=== PATIENT | female | born 1970 | race Caucasian/White ===

== ENCOUNTER 2022-05-05 05:17 | Day surgery (SDC) | payer OTHER ==
[2022-04-30 17:17] VITALS: BMI 29.9
[2022-05-05] MEDS ORDERED: MIDAZOLAM HCL 2 MG/2 ML SINGLE DOSE VIAL ONE (12:06)
[2022-05-05] MEDS ORDERED: KETOROLAC TROMETHAMINE 30 MG/1 ML VIAL ONE (12:06)
[2022-05-05 13:20] VITALS: RESP 18
[2022-05-05 13:45] VITALS: PULSE 78
[2022-05-05 14:34] VITALS: BP 109/71; TEMP 97.8
== END 2022-05-05 13:47 | disposition home or self-care (01) ==
LOC: JASU-SURG 05:17
PROVIDERS: ATTEND Urology
PROC: 0TF3XZZ Fragmentation in Right Kidney Pelvis, External Approach (ICD-10-PCS; principal; 2022-05-05 12:03)
DX: N20.0 Calculus of kidney (principal)
CPT/HCPCS: 82962